=== PATIENT | female | born 1985 | race Caucasian/White ===

== ENCOUNTER 2019-03-21 14:56 | Emergency (ER) | payer SELFPAY ==
[~2019-03-21] VITALS: Ht 165.1 cm; Wt 86.2 kg
[2019-03-21] MEDS ORDERED: PLEASE ENTER HEIGHT AND WEIGHT MC SCH (15:30)
[2019-03-21] MEDS ORDERED: METHOCARBAMOL 750 MG TABLET PO ONE (15:30)
[2019-03-21] MEDS ORDERED: KETOROLAC 30 MG/1 ML IM ONE (15:30)
[2019-03-21] MEDS ORDERED: PLEASE ENTER ALLERGIES MC SCH (15:30)
[2019-03-21] MEDS ORDERED: KETOROLAC 30 MG/1 ML ONE (15:43)
[2019-03-21] MEDS ORDERED: METHOCARBAMOL 750 MG TABLET ONE (15:43)
[2019-03-21 16:06] VITALS: BP 117/73
== END 2019-03-21 16:48 | disposition home or self-care (01) ==
LOC: ED 16:00
DX: S39.012A Strain of muscle, fascia and tendon of lower back, initial encounter (principal); M51.36 Other intervertebral disc degeneration, lumbar region; X58.XXXA Exposure to other specified factors, initial encounter; Y93.89 Activity, other specified; Y92.89 Other specified places as the place of occurrence of the external cause; Y99.8 Other external cause status
CPT/HCPCS: 72110; 96372; 99283; J1885